=== PATIENT | male | born 1930 | race Caucasian/White ===

== ENCOUNTER 2017-03-28 21:32 | Day surgery (SDC) | payer MEDICARE ==
[2017-03-28] MEDS ORDERED: Sterile Water 10 ML ONE (22:36)
[2017-03-28 22:45] LABS: #Eosinphils 0.3 thou/uL (0.0-0.7); #Lymphocytes 0.8 thou/uL (1.20-3.40); #Monocytes 0.8 thou/uL (0.11-0.59); #Neutrophils 7.3 thou/uL (1.40-6.50); %Eosinophils 2.8 % (0.0-10.0); %Lymphocytes 8.6 % (21.0-51.0); %Monocytes 8.3 % (0.0-10.0); Hematocrit 43.5 % (42.0-52.0); Red Blood Cell (RBC) Count 4.47 mill/uL (4.70-6.10); White Blood Cell (WBC) Count 9.1 thou/uL (4.8-10.8)
--- NOTE | 2017-03-28 22:47 | RAD ---
CHEST 1 VIEW: Date: 03/28/17 HISTORY: Chest pain. COMPARISON: Chest 1 view dated 07/29/16. FINDINGS: Chronic changes in the lung bases. No pneumothorax. No focal air space consolidation. Moderate calcifications of the aorta. No acute osseous abnormalities. IMPRESSION: No acute intrathoracic abnormality. POS: [facility]
[2017-03-28 22:56] LABS: ALT (SGPT) 34 U/L (8-55); AST (SGOT) 42 U/L (5-34); Alkaline Phosphatase 104 U/L (40-150); Anion Gap 16 mmol/L (10-20); BUN (Urea Nitrogen) 22 mg/dL (8.4-25.7); Bilirubin, Total 0.7 mg/dL (0.2-1.2); Calc. Creatinine Clearance 0 mL/min (70-130); Calcium 9.6 mg/dL (7.8-10.44); Carbon Dioxide 20 mmol/L (23-31); Chloride 110 mmol/L (98-107); Estimated GFR-MDRD 50; Globulin 4.2 g/dL (2.4-3.5); Lipase 35 U/L (8-78); Protein, Total 8.1 g/dL (5.8-8.1)
[2017-03-28 23:03] LABS: Troponin I 0.013 ng/mL (< 0.028)
[2017-03-29] MEDS ORDERED: Fentanyl 100 MCG/2 ML VIAL ONE (00:05)
[2017-03-29] MEDS ORDERED: Midazolam HCl 2 mg/2 ml Vial ONE (00:05)
[2017-03-29] MEDS ORDERED: Lidocaine 2% PF 10 ML AMP (For Epidural Use) ONE (00:39)
[2017-03-29] MEDS ORDERED: Propofol 200 MG/20 ML VIAL ONE (00:39)
--- NOTE | 2017-03-29 01:44 | OP ---
DATE OF PROCEDURE: 03/29/2017 PROCEDURE: Esophagogastroduodenoscopy with removal of esophageal foreign body and esophageal balloon dilation and biopsy. PREOPERATIVE DIAGNOSIS: Esophageal foreign body and food bolus impaction. OPERATIVE NOTE: Informed consent was obtained from the patient. He was sedated with general anesthe kaylyn. The bite block was placed and the endoscope was advanced easily to the second portion of the du odenum and retroflexion was performed in the stomach. The esophagus had a food bolus impacted in the distal esophagus. This was advanced into the stomach with gentle pressure with the endoscope. Ther e was a stricture in the distal esophagus, which was circumferential with some circumferential erosio n. The stricture was dilated to 16.5 mm, which was stage II of an 18-mm balloon. An appropriate tea r at the mucosa at the dilation site was seen. There was a 1-2 cm hiatal hernia present. The stomac h was normal including retroflexed views otherwise. Biopsies were taken from the antrum of the stoma ch to rule out H. pylori. There were multiple shallow ulcers in the first portion of the duodenum. The second portion of the duodenum was normal. IMPRESSION: 1. Esophageal food bolus advanced into the stomach with the endoscope. 2. Circumferential erosive esophagitis grade C at the level of the stricture. 3. 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 An appropriate tear was seen at the dila tion site. 4. A 1-2 cm hiatal hernia. 5. Multiple shallow duodenal ulcers. Gastric biopsies were obtained to rule out Helicobacter pylori . RECOMMENDATIONS: 1. Await histopathology. 2. Pantoprazole 40 mg daily. 3. Follow up with Dr. Thomas in 2-4 weeks. Consider EGD to dilate further depending on symptom resp onse. 4. He does have a difficult airway and a followup endoscopy is planned and consider scheduling this at the hospital.
--- NOTE | 2017-03-29 06:01 | HP ---
DATE OF CONSULTATION: 03/29/2017 CHIEF COMPLAINT: Cannot swallow and upper epigastric to lower chest pain. HISTORY OF PRESENT ILLNESS: Mr. Ngo is an 86-year-old man who has had intermittent episodes of d ysphagia to solids for which he has to vomit to relieve the symptoms. This afternoon, he was eating fish, the food quit going down and developed aching pain in the lower chest region. He tried vomitin g several times, but just vomited up some clear mucousy material. He came to the emergency room for further care. He was given glucagon without help. He attempted to swallow water, but water just cam e back up. He has had no shortness of breath, no lower abdominal pain, no diarrhea, constipation, we ight loss or blood in the stool. PAST MEDICAL HISTORY: Hypertension, COPD, stroke, urethral stricture, hyperlipidemia. PAST SURGICAL HISTORY: Cholecystectomy and EGD in 2008 that showed an esophageal ring by Dr. Thomas. FAMILY HISTORY: Negative for GI malignancy. SOCIAL HISTORY: No alcohol, tobacco, or drugs. ALLERGIES: No known drug allergies. MEDICATIONS: Prior to admission, Advair, DuoNeb, amlodipine, simvastatin, aspirin, vitamin. REVIEW OF SYSTEMS: Negative x10 systems reviewed except as stated in the history of present illness. PHYSICAL EXAMINATION: GENERAL: He is in no acute distress, alert and oriented x3. HEENT: Eyes have no scleral icterus. Oropharynx is clear without lesions. NECK: No cervical or supraclavicular lymphadenopathy. LUNGS: Clear to auscultation bilaterally. HEART: Regular rate and rhythm. He has a 3/6 systolic murmur at right upper sternal border. ABDOMEN: Soft, nontender, nondistended. Bowel sounds are present. EXTREMITIES: No lower extremity edema. IMPRESSION: Esophageal food bolus impaction. He is unable to tolerate liquids. PLAN: 1. EGD this evening. 2. Start proton-pump inhibitor daily.
== END 2017-03-29 02:30 | disposition home or self-care (01) ==
LOC: ERS 21:32 → SDC/OP 03-29 00:30 → ERS 03-29 00:30 → SDC/OP 03-29 01:18
PROVIDERS: ATTEND Internal Medicine Gastroenterology
PROC: 0DC58ZZ Extirpation of Matter from Esophagus, Via Natural or Artificial Opening Endoscopic (ICD-10-PCS; principal; 2017-03-28)
PROC: 0DB78ZX Excision of Stomach, Pylorus, Via Natural or Artificial Opening Endoscopic, Diagnostic (ICD-10-PCS; 2017-03-28)
PROC: 0D758ZZ Dilation of Esophagus, Via Natural or Artificial Opening Endoscopic (ICD-10-PCS; 2017-03-28)
DX: T18.128A Food in esophagus causing other injury, initial encounter (principal); K29.60 Other gastritis without bleeding; K44.9 Diaphragmatic hernia without obstruction or gangrene; K22.2 Esophageal obstruction; K22.10 Ulcer of esophagus without bleeding; I10 Essential (primary) hypertension; J44.9 Chronic obstructive pulmonary disease, unspecified; E78.5 Hyperlipidemia, unspecified; Z79.82 Long term (current) use of aspirin; Z79.51 Long term (current) use of inhaled steroids; Z79.899 Other long term (current) drug therapy; Z90.49 Acquired absence of other specified parts of digestive tract; Z98.890 Other specified postprocedural states; Z86.73 Personal history of transient ischemic attack (TIA), and cerebral infarction without residual deficits
CPT/HCPCS: 43247; 43239; 43249; 71010; 80053; 82553; 83690; 84484; 85025; 88305; 88312; 93005; 96374; 99285; J1610; A4216; J2001; J2250; J2704; J3010

== ENCOUNTER 2017-12-08 12:37 | Outpatient (CLI) | payer MEDICARE ==
--- NOTE | 2017-12-08 13:42 | RAD ---
LUMBAR SPINE 4 VIEWS: Date: 12/08/17 HISTORY: Acute right-sided low back pain. COMPARISON: None. FINDINGS: There is diffuse bone demineralization. Five lumbar-type vertebral bodies. No spondylolisthesis or sp ondylolysis. Lumbar spine vertebral body height is maintained. No fracture. Atherosclerosis of aorta is noted. IMPRESSION: Diffuse bone demineralization without evidence of a fracture or significant loss of disc space height . POS: [facility]
--- NOTE | 2017-12-08 13:51 | RAD ---
ONE VIEW PELVIS: TWO VIEWS RIGHT HIP: HISTORY: Acute low back pain. COMPARISON: None. FINDINGS: PELVIS: There appears to be metallic suture projecting over the right hemipelvis. The sacroiliac lilia ints are patent and symmetric. The bony pelvis is intact. The visualized sacral ala are preserved. Contour of the left and right femoral head are maintained in the single AP projection of the pelvis. Mild loss of left and right hip joint space height. HIP: The contour of the femoral head is maintained. Mild loss of joint space height. No fracture. IMPRESSION: 1. Unremarkable one view pelvis. 2. Unremarkable two views right hip. No fracture. POS: [facility]
== END 2017-12-08 12:38 | disposition home or self-care (01) ==
LOC: RAD 12:37
PROVIDERS: ATTEND Family Medicine
DX: M25.551 Pain in right hip (principal); M54.5 Low back pain
CPT/HCPCS: 72110

== ENCOUNTER 2018-08-11 09:34 | Emergency (ER) | payer MEDICARE ==
[2018-08-11] MEDS ORDERED: predniSONE 20 MG TAB ONE (09:56)
[2018-08-11 10:12] LABS: #Eosinphils 0.7 thou/uL (0.0-0.7); #Lymphocytes 0.9 thou/uL (1.20-3.40); #Monocytes 0.7 thou/uL (0.11-0.59); #Neutrophils 3.4 thou/uL (1.40-6.50); %Basophils 0.2 % (0.0-1.0); %Eosinophils 11.5 % (0.0-10.0); %Lymphocytes 15.6 % (21.0-51.0); %Monocytes 12.6 % (0.0-10.0); %Neutrophils 60.1 % (42.0-75.0); Hemoglobin 12.9 g/dL (14.0-18.0); Mean Corpuscular HGB CONC 32.4 g/dL (32.0-36.0); Mean Corpuscular Hemoglobin 30.9 pg (27.0-31.0); Mean Corpuscular Volume 95.2 fL (78.0-98.0); Mean Platelet Volume 6.8 fL (7.4-10.4); Platelet Count 221 thou/uL (130-400); RBC Distribution Width 13.5 % (11.5-14.5); Red Blood Cell (RBC) Count 4.19 mill/uL (4.70-6.10); White Blood Cell (WBC) Count 5.7 thou/uL (4.8-10.8)
--- NOTE | 2018-08-11 10:14 | RAD ---
FChest AP view INDICATION: Shortness of breath COMPARISON: March 28, 2017 FINDINGS:There is stable cardiomegaly and chronic lung changes. No acute airspace opacity, pleural ef fusion or pneumothorax is evident. Osseous structures are similar-appearing. IMPRESSION: No acute cardiopulmonary abnormality.
[2018-08-11 10:39] LABS: ALT (SGPT) 23 U/L (8-55); AST (SGOT) 30 U/L (5-34); Albumin 3.5 g/dL (3.4-4.8); Alkaline Phosphatase 89 U/L (40-150); Anion Gap 11 mmol/L (10-20); BUN (Urea Nitrogen) 18 mg/dL (8.4-25.7); Bilirubin, Total 0.8 mg/dL (0.2-1.2); Calc. Creatinine Clearance 0 mL/min (70-130); Calcium 8.9 mg/dL (7.8-10.44); Carbon Dioxide 24 mmol/L (23-31); Chloride 109 mmol/L (98-107); Estimated GFR-MDRD 53; Glucose 93 mg/dL (83-110); Protein, Total 6.5 g/dL (5.8-8.1); Sodium 140 mmol/L (136-145)
== END 2018-08-11 12:44 | disposition home or self-care (01) ==
LOC: ERS 09:34
DX: J44.1 Chronic obstructive pulmonary disease with (acute) exacerbation (principal); Z86.73 Personal history of transient ischemic attack (TIA), and cerebral infarction without residual deficits; J44.9 Chronic obstructive pulmonary disease, unspecified; Z79.899 Other long term (current) drug therapy; Z79.82 Long term (current) use of aspirin
CPT/HCPCS: 36415; 71045; 80053; 83880; 84484; 85025; 93005

== ENCOUNTER 2018-10-15 12:16 | Emergency (ER) | payer MEDICARE ==
--- NOTE | 2018-10-15 13:03 | CT ---
EXAM: Brain CT scan Without contrast: HISTORY: Dizziness when walking COMPARISON: 07/29/2016 FINDINGS: Moderate sinus mucosal disease. Old right frontal infarct changes. Stable. Atrophy and chronic white matter ischemic change. No focal mass or midline shift. No intra or extra-axial hemorrhage. The visualized sinuses and mastoids are clear of acute process. IMPRESSION: No mass or bleed or other significant acute intracranial process. Stable from prior study.
[2018-10-15] MEDS ORDERED: Meclizine HCl 25 MG TAB ONE (13:09)
[2018-10-15 13:25] LABS: Hemoglobin 13.9 g/dL (14.0-18.0); Mean Corpuscular Hemoglobin 32.5 pg (27.0-31.0); Mean Corpuscular Volume 95.7 fL (78.0-98.0); Mean Platelet Volume 7.2 fL (7.4-10.4); Platelet Count 207 thou/uL (130-400); RBC Distribution Width 13.4 % (11.5-14.5); Red Blood Cell (RBC) Count 4.27 mill/uL (4.70-6.10); White Blood Cell (WBC) Count 21.8 thou/uL (4.8-10.8)
[2018-10-15 13:48] LABS: Band 5 % (5-11); Lymphocytes 2 % (21-51); MDiff Complete? YES; Monocytes 6 % (0-10); Neutrophil 87 % (42-75); Platelet Morphology Comment Appears Adequate; Polychromasia SLIGHT = 2-3 cells (100X) (0-2/hpf)
[2018-10-15 13:49] LABS: ALT (SGPT) 42 U/L (8-55); AST (SGOT) 55 U/L (5-34); Albumin 3.8 g/dL (3.4-4.8); Alkaline Phosphatase 95 U/L (40-150); Anion Gap 17 mmol/L (10-20); BUN (Urea Nitrogen) 22 mg/dL (8.4-25.7); Bilirubin, Total 1.3 mg/dL (0.2-1.2); Calc. Creatinine Clearance 0 mL/min (70-130); Carbon Dioxide 18 mmol/L (23-31); Chloride 108 mmol/L (98-107); Estimated GFR-MDRD 54; Globulin 3.6 g/dL (2.4-3.5); Glucose 112 mg/dL (83-110); Potassium 4.1 mmol/L (3.5-5.1); Protein, Total 7.4 g/dL (5.8-8.1); Sodium 139 mmol/L (136-145)
[2018-10-15 14:53] LABS: Bilirubin Negative (Negative); Blood, Urine Small (Negative); Clarity CLOUDY (Clear); Glucose, Urine (Dipstick) Negative (Negative); Leukocyte Large (Negative); Nitrite Positive (Negative); Protein, Urine (Dipstick) 30 mg/dL (Neg-Trace); Specific Gravity, Urine 1.022 (1.002-1.036); Urobilinogen 0.2 mg/dL (0.2-1.0)
[2018-10-15 14:56] LABS: Bacteria/HPF 4+ HPF (None Seen); Hyaline Casts/LPF 0-3 HYALINE CAST LPF (0-3 Hyaline); Pathc Cast-AUWi Flag 0.81 (0-2.49); Squamous Epithelial 0-3 HPF (0-3)
[2018-10-15] MEDS ORDERED: cefTRIAXone\\ROCEPHIN 2 GM VIAL ONE (15:13)
[2018-10-15] MEDS ORDERED: cefTRIAXone\\ROCEPHIN 1 GM VIAL ONE (15:23)
[2018-10-15] MEDS ORDERED: Lidocaine 1% (PF) 30 ML VIAL ONE (15:23)
== END 2018-10-15 16:36 ==
LOC: ERS 12:16
DX: N39.0 Urinary tract infection, site not specified (principal); J44.9 Chronic obstructive pulmonary disease, unspecified; Z79.899 Other long term (current) drug therapy; Z86.73 Personal history of transient ischemic attack (TIA), and cerebral infarction without residual deficits
CPT/HCPCS: 36415; 70450; 80053; 81003; 81015; 84484; 85025; 87077; 87086; 87186; 93005; J0696; J2001; J8499

== ENCOUNTER 2018-10-15 20:32 | Inpatient (IN) | payer MEDICARE ==
[2018-10-15 21:19] LABS: #Basophils 0.1 thou/uL (0.0-0.2); #Eosinphils 0.1 thou/uL (0.0-0.7); #Lymphocytes 0.7 thou/uL (1.20-3.40); #Monocytes 1.4 thou/uL (0.11-0.59); #Neutrophils 14.9 thou/uL (1.40-6.50); %Basophils 0.4 % (0.0-1.0); %Eosinophils 0.4 % (0.0-10.0); %Lymphocytes 4.1 % (21.0-51.0); %Neutrophils 87.1 % (42.0-75.0); Hemoglobin 13.4 g/dL (14.0-18.0); Mean Corpuscular HGB CONC 33.1 g/dL (32.0-36.0); Mean Corpuscular Hemoglobin 31.8 pg (27.0-31.0); Mean Corpuscular Volume 95.8 fL (78.0-98.0); Mean Platelet Volume 7.3 fL (7.4-10.4); Platelet Count 208 thou/uL (130-400); RBC Distribution Width 13.4 % (11.5-14.5); Red Blood Cell (RBC) Count 4.21 mill/uL (4.70-6.10); White Blood Cell (WBC) Count 17.1 thou/uL (4.8-10.8)
--- NOTE | 2018-10-15 21:37 | CT ---
CT BRAIN NONCONTRAST: DATE: 10/15/2018 HISTORY: 88-year-old male status post head trauma from fall COMPARISON: 10/15/2018 12:54 PM, approximately 8 hours ago FINDINGS: There is no evidence of acute intra-axial or extra-axial hemorrhage. There is no midline shift or any other mass effect. There is no extra-axial fluid collection. There is no evidence of obstructive hydrocephalus. Calvarium is intact. There is diffuse brain parenchymal volume loss. There are low att enuation areas in the white matter. These are nonspecific, but in a patient of this age, they are probably chronic ischemic white matter changes due to microvascular atherosclerosis. Again noted are the moderate sized patchy regions of encephalomalacia and gliosis in the right anterior upper frontal lobe cortex, underlying subcortical white matter, and adjacent valle radiata and centrum paige iovale. No interval change overall. IMPRESSION: 1) No acute intracranial findings. 2) involutional changes and chronic ischemic white matter changes. 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
[2018-10-15 21:41] LABS: ALT (SGPT) 52 U/L (8-55); AST (SGOT) 68 U/L (5-34); Albumin 3.4 g/dL (3.4-4.8); Alkaline Phosphatase 91 U/L (40-150); Anion Gap 17 mmol/L (10-20); BUN (Urea Nitrogen) 21 mg/dL (8.4-25.7); Calc. Creatinine Clearance 0 mL/min (70-130); Calcium 9.1 mg/dL (7.8-10.44); Carbon Dioxide 17 mmol/L (23-31); Chloride 109 mmol/L (98-107); Estimated GFR-MDRD 57; Globulin 3.6 g/dL (2.4-3.5); Glucose 101 mg/dL (83-110); Potassium 3.8 mmol/L (3.5-5.1); Sodium 139 mmol/L (136-145)
--- NOTE | 2018-10-15 22:08 | RAD ---
RADIOGRAPH CHEST 1 VIEW: DATE: 10/15/2018 HISTORY: 88-year-old male status post acute chest trauma from fall FINDINGS: There are no airspace densities, pulmonary edema, pneumothorax, or cardiomegaly. The lateral costophr enic angles are sharp. IMPRESSION: No acute cardiopulmonary findings.
[2018-10-16] MEDS ORDERED: Ondansetron ODT 4 MG TAB PO PRN (00:05)
[2018-10-16] MEDS ORDERED: traMADol HCl 50 MG TAB PO PRN (00:05)
[2018-10-16] MEDS ORDERED: HYDROcodone/Acetaminophen 10/325 mg Tablet PO PRN ×2 (00:05→00:13)
--- NOTE | 2018-10-16 00:47 | HP ---
TIME: 11:50 p.m. HISTORY OF PRESENT ILLNESS: This is an 88-year-old white male with history of COPD, hypertension, and hyperlipidemia, who presents with frequent falls and weakness. He is followed by Dr. Rocky Milligan in the office. He has had some previous hospitalizations for COPD. He was seen earlier in the ER due to weakness. He was diagnosed with the UTI and was discharged. However, he continued to fall throughout the day and was complaining of marked weakness and unsteadiness. He was brought back to the ER and is being admitted for possible urosepsis. His UA was grossly abnormal with 4+ bacteria. Presently, he is stable. He does not complain of any fever, nausea, or vomiting. He just simply complains of feeling very weak. PAST MEDICAL HISTORY: Allergic rhinitis, history of stroke, and COPD. PAST SURGICAL HISTORY: Include hernia repair in 1955, tonsillectomy, and laparoscopic cholecystectomy in 2016. FAMILY HISTORY: Unknown. SOCIAL HISTORY: He lives in assisted living. He is single. He has children. He does not smoke and does not drink at this time. I believe he was a previous smoker. MEDICATIONS: Include multivitamin, aspirin 81 daily, amlodipine 5 daily, simvastatin 20 daily, Advair 250/50 b.i.d., DuoNeb q.6h. p.r.n. ALLERGIES: NONE. REVIEW OF SYSTEMS: As above. PHYSICAL EXAMINATION: VITAL SIGNS: Blood pressure /89, pulse 80, respirations 14. GENERAL: The patient in no acute distress at this time. HEENT: Clear. NECK: Supple. HEART: Regular rate and rhythm. LUNGS: Clear. ABDOMEN: Soft, nontender. No CVA tenderness. EXTREMITIES: With no edema. LABORATORY DATA: Urine with specific gravity of 1.022, large leukocyte esterase, 4+ bacteria and TNTC wbc's. White count 17.1, H and H 13 and 40, platelet 208. Sodium 139, potassium 3.8, creatinine 1.20, BUN 21. Liver functions normal. ASSESSMENT: 1. Urosepsis, cultures pending. 2. History of chronic obstructive pulmonary disease. 3. History of cerebrovascular accident. 4. Weakness. PLAN: 1. Admit. 2. Slowly hydrate. 3. IV Levaquin. 4. Blood and urine culture. We will continue to follow. Job ID: [id number]
[2018-10-16] MEDS: Sodium Chloride 0.9% 1,000 ML IV SCH ×2 (01:25→21:35)
[2018-10-16 01:41] VITALS: BMI 20.1
[2018-10-16 05:34] LABS: #Eosinphils 0.1 thou/uL (0.0-0.7); #Lymphocytes 0.8 thou/uL (1.20-3.40); #Monocytes 1.4 thou/uL (0.11-0.59); #Neutrophils 12.5 thou/uL (1.40-6.50); %Basophils 0.1 % (0.0-1.0); %Eosinophils 0.5 % (0.0-10.0); %Lymphocytes 5.4 % (21.0-51.0); %Monocytes 9.2 % (0.0-10.0); %Neutrophils 84.9 % (42.0-75.0); Hemoglobin 12.2 g/dL (14.0-18.0); Mean Corpuscular HGB CONC 34.7 g/dL (32.0-36.0); Mean Corpuscular Hemoglobin 33.1 pg (27.0-31.0); Mean Corpuscular Volume 95.2 fL (78.0-98.0); Mean Platelet Volume 7.2 fL (7.4-10.4); Platelet Count 184 thou/uL (130-400); RBC Distribution Width 13.2 % (11.5-14.5); Red Blood Cell (RBC) Count 3.68 mill/uL (4.70-6.10); White Blood Cell (WBC) Count 14.8 thou/uL (4.8-10.8)
[2018-10-16 05:54] LABS: Anion Gap 13 mmol/L (10-20); BUN (Urea Nitrogen) 17 mg/dL (8.4-25.7); Calc. Creatinine Clearance 43 mL/min (70-130); Calcium 8.6 mg/dL (7.8-10.44); Carbon Dioxide 21 mmol/L (23-31); Chloride 109 mmol/L (98-107); Estimated GFR-MDRD 64; Glucose 109 mg/dL (83-110); Potassium 3.5 mmol/L (3.5-5.1); Sodium 139 mmol/L (136-145)
[2018-10-16] MEDS: Multivitamin W/ Minerals 1 TAB PO SCH (08:04)
[2018-10-16] MEDS: Aspirin Chewable 81 MG TAB PO SCH (08:04)
[2018-10-16] MEDS: Amlodipine 5 MG TAB PO SCH (08:04)
[2018-10-16] MEDS: Famotidine/PF 20 mg/2ml Vial SLOW IVP SCH (08:04)
[2018-10-16] MEDS: Enoxaparin Sodium 40 MG/0.4 ML SYRINGE SC SCH (08:05)
[2018-10-16] MEDS ORDERED: Prevnar 13-Val Conj/PF 0.5 ML SYRINGE IM ONE (09:00)
[2018-10-16] MEDS: Mometasone/Formoterol 120 PUFF INHALER INH SCH ×2 (10:24→18:52)
--- NOTE | 2018-10-16 12:53 | PRG ---
DATE OF SERVICE: 10/16/2018 SUBJECTIVE: The patient is feeling somewhat better today. He does complain of a tender forehead from his fall. He did eat 50% of his breakfast. OBJECTIVE: VITAL SIGNS: Temperature 98.4, pulse 82, respirations 16, and blood pressure 131/62. HEART: Regular rate and rhythm. LUNGS: Clear. ABDOMEN: Soft, nontender. LABORATORY DATA: White count decreased from 17.1 to 14.8, H and H of 12 and 35. Creatinine 1.09, BUN 17, and blood sugar 109. ASSESSMENT: 1. Urosepsis, cultures are pending. 2. History of chronic obstructive pulmonary disease. 3. History of cerebrovascular accident. 4. Weakness. PLAN: 1. Continue to hydrate. 2. IV Levaquin. 3. Physical therapy consult. 4. We will continue to follow. Job ID: [id number]
[2018-10-16] MEDS: Atorvastatin Calcium 10 MG TAB PO SCH (21:33)
[2018-10-17 05:26] LABS: #Eosinphils 0.6 thou/uL (0.0-0.7); #Lymphocytes 0.9 thou/uL (1.20-3.40); #Monocytes 0.9 thou/uL (0.11-0.59); #Neutrophils 6.7 thou/uL (1.40-6.50); %Eosinophils 6.8 % (0.0-10.0); %Lymphocytes 9.7 % (21.0-51.0); %Monocytes 10.3 % (0.0-10.0); %Neutrophils 73.2 % (42.0-75.0); Hemoglobin 12.2 g/dL (14.0-18.0); Mean Corpuscular HGB CONC 34.2 g/dL (32.0-36.0); Mean Corpuscular Hemoglobin 32.9 pg (27.0-31.0); Mean Corpuscular Volume 96.2 fL (78.0-98.0); Mean Platelet Volume 7.7 fL (7.4-10.4); Platelet Count 191 thou/uL (130-400); RBC Distribution Width 13.1 % (11.5-14.5); White Blood Cell (WBC) Count 9.2 thou/uL (4.8-10.8)
[2018-10-17 05:48] LABS: Anion Gap 12 mmol/L (10-20); BUN (Urea Nitrogen) 18 mg/dL (8.4-25.7); Calc. Creatinine Clearance 43 mL/min (70-130); Calcium 8.3 mg/dL (7.8-10.44); Carbon Dioxide 19 mmol/L (23-31); Chloride 112 mmol/L (98-107); Estimated GFR-MDRD 64; Glucose 88 mg/dL (83-110); Potassium 3.6 mmol/L (3.5-5.1); Sodium 139 mmol/L (136-145)
[2018-10-17] MEDS: Mometasone/Formoterol 120 PUFF INHALER INH SCH ×2 (08:16→19:11)
[2018-10-17] MEDS: Multivitamin W/ Minerals 1 TAB PO SCH (09:20)
[2018-10-17] MEDS: Amlodipine 5 MG TAB PO SCH (09:21)
[2018-10-17] MEDS: Enoxaparin Sodium 40 MG/0.4 ML SYRINGE SC SCH (09:21)
[2018-10-17] MEDS: Aspirin Chewable 81 MG TAB PO SCH (09:21)
[2018-10-17] MEDS: Famotidine/PF 20 mg/2ml Vial SLOW IVP SCH (09:29)
--- NOTE | 2018-10-17 11:10 | PRG ---
DATE OF SERVICE: 10/17/2018 SUBJECTIVE: Mr. Ngo is resting well. He is feeling better. He has been afebrile. OBJECTIVE: VITAL SIGNS: Temperature is 98.0, BP 145/86, O2 sats 95% on room air. GENERAL: Alert and active, in no distress. LUNGS: Clear. HEART: Reveals a regular rate and rhythm. No murmurs, gallops, or rubs. LABORATORY DATA: Hemoglobin 12.2, hematocrit 34.6, white count 9.2. Electrolytes; sodium 139, potassium 3.6, chloride 112, CO2 of 19, BUN 18, creatinine 1.09. Blood cultures negative thus far. IMPRESSION: Apparent pyelonephritis, urinary tract infection. PLAN: Continue current IV antibiotics. Possible discharge tomorrow. Job ID: [id number]
[2018-10-17] MEDS: Sodium Chloride 0.9% 1,000 ML IV SCH (19:25)
[2018-10-17] MEDS: Atorvastatin Calcium 10 MG TAB PO SCH (21:17)
[2018-10-18] MEDS: Mometasone/Formoterol 120 PUFF INHALER INH SCH (06:41)
[2018-10-18 07:35] VITALS: BP 154/77; TEMP 97.8
--- NOTE | 2018-10-18 07:37 | PRG ---
DATE OF SERVICE: 10/18/2018 SUBJECTIVE: Mr. Ngo is doing well. He reports no fever, no nausea, vomiting, or diarrhea. OBJECTIVE: VITAL SIGNS: Temperature 98.0, BP 137/63. LABORATORY DATA: He has urine culture that is growing Enterobacter cloacae with multiple sensitivities. IMPRESSION: Urinary tract infection, now stabilized. He can be discharged home. He will follow up with me in 1 week. Job ID: [id number]
[2018-10-18] MEDS: Enoxaparin Sodium 40 MG/0.4 ML SYRINGE SC SCH (08:04)
[2018-10-18] MEDS: Famotidine/PF 20 mg/2ml Vial SLOW IVP SCH (08:08)
[2018-10-18] MEDS: Amlodipine 5 MG TAB PO SCH (08:08)
[2018-10-18] MEDS: Aspirin Chewable 81 MG TAB PO SCH (08:08)
[2018-10-18] MEDS: Multivitamin W/ Minerals 1 TAB PO SCH (08:08)
--- NOTE | 2018-10-19 09:31 | DIS ---
DATE OF ADMISSION: 10/15/2018 DATE OF DISCHARGE: 10/18/2018 DISCHARGE DIAGNOSES: Pyelonephritis/urinary tract infection. HOSPITAL SUMMARY: The patient is an 88-year-old male who has a previous CVA, admitted to the emergency room with fever, had some frequent falls, who was seen in the ER that day. He came back with further fever. He was treated with IV antibiotics consisting of Levaquin. Urine cultures obtained which did grow out Enterobacter cloacae sensitive to Levaquin. He has remained afebrile in the hospital. He was able to tolerate all oral intake. He was discharged home on 10/18/2018, in good condition. DISCHARGE MEDICATIONS: 1. Amlodipine 5 mg daily. 2. Aspirin 81 mg daily. 3. Fluticasone nasal spray b.i.d. 4. Mometasone formoterol 200/5 b.i.d. 5. Simvastatin 10 mg daily. 6. Tylenol p.r.n. pain. In addition, he was placed on Levaquin 500 mg daily. FOLLOWUP: He will follow up with me in 1 week. Job ID: [id number]
== END 2018-10-18 11:06 | disposition home or self-care (01) | DRG 690 ==
LOC: ERS 20:32 → T4-A 23:10
PROVIDERS: ADMIT Family Medicine; ATTEND Family Medicine
DX: N39.0 Urinary tract infection, site not specified (principal); J44.9 Chronic obstructive pulmonary disease, unspecified; I10 Essential (primary) hypertension; B96.89 Other specified bacterial agents as the cause of diseases classified elsewhere; E78.5 Hyperlipidemia, unspecified; Z90.49 Acquired absence of other specified parts of digestive tract; Z86.73 Personal history of transient ischemic attack (TIA), and cerebral infarction without residual deficits; Z79.51 Long term (current) use of inhaled steroids; Z79.82 Long term (current) use of aspirin; Z79.899 Other long term (current) drug therapy
CPT/HCPCS: 36415; 70450; 71045; 80048; 80053; 81003; 81015; 83605; 84484; 85025; 87040; 87077; 87086; 87186; 90471; 90670; 93005; 96360; 96372; G0009; J0696; J1650; J1956; J2001; J8499; S0028

== ENCOUNTER → 2018-11-30 | Day surgery (SDC) | payer MEDICARE ==
[~2018-11-30] MED LIST: Lidocaine Viscous Sol 2% 15 ml UD Cup ONE; Mag-Al 1200 mg/1200 mg/30 ML UDCUP ONE; Ondansetron HCl/PF 4 MG/2 ML Vial IVP PRN; Ondansetron ODT 4 MG TAB ONE; Sterile Water 10 ML ONE
--- NOTE | 2018-11-30 17:52 | RAD ---
TWO VIEW CHEST WITH PA AND LATERAL: 11/30/18 HISTORY: Feels like something stuck in throat. Lungs are clear. Heart and mediastinum unremarkable. Vascularity is normal. Apical pleural thickenin g is stable when compared to 11/15/14 exam. Mild degenerative changes in the spine. Mild aortic calcifications. IMPRESSION: No acute finding or interval change. POS: [facility]
[2018-11-30 19:13] LABS: #Eosinphils 0.2 thou/uL (0.0-0.7); #Lymphocytes 0.7 thou/uL (1.20-3.40); #Monocytes 0.9 thou/uL (0.11-0.59); #Neutrophils 15.1 thou/uL (1.40-6.50); %Eosinophils 1.4 % (0.0-10.0); %Lymphocytes 3.9 % (21.0-51.0); %Monocytes 5.1 % (0.0-10.0); %Neutrophils 89.6 % (42.0-75.0); Hemoglobin 13.6 g/dL (14.0-18.0); Mean Corpuscular HGB CONC 33.8 g/dL (32.0-36.0); Mean Corpuscular Hemoglobin 32.5 pg (27.0-31.0); Mean Platelet Volume 6.8 fL (7.4-10.4); Platelet Count 226 thou/uL (130-400); RBC Distribution Width 12.8 % (11.5-14.5); Red Blood Cell (RBC) Count 4.19 mill/uL (4.70-6.10); White Blood Cell (WBC) Count 16.9 thou/uL (4.8-10.8)
[2018-11-30 19:22] LABS: PTT 32.2 SEC (22.9-36.1); Prothrombin Time 13.4 SEC (12.0-14.7)
[2018-11-30 19:42] LABS: ALT (SGPT) 34 U/L (8-55); AST (SGOT) 37 U/L (5-34); Albumin 3.9 g/dL (3.4-4.8); Alkaline Phosphatase 91 U/L (40-150); BUN (Urea Nitrogen) 25 mg/dL (8.4-25.7); Bilirubin, Total 0.4 mg/dL (0.2-1.2); Calc. Creatinine Clearance 0 mL/min (70-130); Calcium 9.8 mg/dL (7.8-10.44); Carbon Dioxide 24 mmol/L (23-31); Estimated GFR-MDRD 53; Globulin 3.8 g/dL (2.4-3.5); Glucose 167 mg/dL (83-110); Protein, Total 7.7 g/dL (5.8-8.1)
[2018-11-30 19:50] LABS: Anion Gap 12 mmol/L (10-20); Chloride 109 mmol/L (98-107); Potassium 3.9 mmol/L (3.5-5.1); Sodium 140 mmol/L (136-145)
[2018-11-30 22:12] LABS: Bacteria/HPF None Seen HPF (None Seen); Bilirubin Negative (Negative); Blood, Urine Negative (Negative); Clarity Clear (Clear); Glucose, Urine (Dipstick) Normal (Negative); Leukocyte Negative Leu/uL (Negative); Nitrite Negative (Negative); Protein, Urine (Dipstick) 20 mg/dL (Neg-Trace); RBC/HPF 0-3 HPF (0-3); Squamous Epithelial None Seen HPF (0-3); Urobilinogen Normal mg/dL (Less than 2); WBC/HPF 0-3 HPF (0-3)
--- NOTE | 2018-12-01 02:26 | CON ---
DATE OF CONSULTATION: 11/30/2018 REASON FOR CONSULTATION: Esophageal food bolus impaction. CONSULTING PHYSICIAN: Dr. Courtney. HISTORY OF PRESENT ILLNESS: The patient is an 88-year-old male with past medical history of COPD, hypertension, hyperlipidemia, recurrent urinary tract infections, and TIA/cerebrovascular accident with residual left-sided deficits and esophageal stricture with food impaction in 2017, presenting with complaints of dysphagia. He states for the last 1 to 2 months he has been having intermittent episodes of the sensation that food is getting stuck at the level of the xiphoid process that would occur primarily with ingested cold foods. This would occur with both solid and liquid foods and would occur for 3-5 days at a time and spontaneously resolve. However, earlier today while the patient was eating both fish and ice cream, during the ingestion of the eye stream, he noted that the sensation of pressure was increasing at the level of the xiphoid process. He tried to drink water and was unsuccessful in terms of relieving this pressure, but instead vomited up a small amount of the water. With repeated attempts to "swallow hard" that were unsuccessful, it prompted him to seek healthcare assistance in the [facility] ER. While in the ER, glucagon and ingestion of water was attempted and were both unsuccessful. Otherwise, he currently denies any fevers, chills, hematemesis, melena, hematochezia, or weight loss. Of note, the patient had an upper endoscopy performed on 04/06/2017, for a food bolus impaction with the findings of a higher grade distal esophageal stricture just proximal to the GE junction that was dilated to 16.5 mm. It was recommend that he follow up in the GI Clinic, but did not follow up. He was also placed on PPI therapy at that time, but this was discontinued at an unknown time ago due to the patient feeling better. REVIEW OF SYSTEMS: A 10-category review of systems was obtained with all responses negative except for the pertinent positives as listed in HPI. PAST MEDICAL HISTORY: As per HPI. PAST SURGICAL HISTORY: Cholecystectomy, tonsillectomy, and ventral hernia repair. FAMILY HISTORY: Breast cancer diagnosed in his mother, no stated GI malignancies. SOCIAL HISTORY: Denies any tobacco, alcohol, or illicit drug use. OUTPATIENT MEDICATIONS: Reviewed. ALLERGIES: NO KNOWN DRUG ALLERGIES. PHYSICAL EXAMINATION: VITAL SIGNS: Temperature 97.9, pulse 66, blood pressure 192/96, respiratory rate 21, saturating 96% on room air. GENERAL: The patient was lying in bed, in no acute distress. Alert and oriented x4, although somewhat hard of hearing. Intermittently spitting up into the emesis bag at bedside. HEENT: Neck is supple. Normocephalic, atraumatic. No scleral icterus or JVD noted. CARDIOVASCULAR: Regular rate and rhythm with no discernible murmurs, gallops, or rubs. RESPIRATORY: Clear to auscultation bilaterally with no discernible wheezes or rales. ABDOMEN: Normoactive bowel sounds. Soft, nontender, nondistended. EXTREMITIES: No cyanosis, clubbing, or edema. LABORATORY DATA: CBC with a white blood cell count of 16.9, hemoglobin 13.6, hematocrit 40.2, glucose 226. INR 1.0. Comprehensive medical panel still pending at the time of this evaluation. IMAGING STUDIES: Chest x-ray obtained on 11/30/2018, showed no acute cardio or pulmonary process. ASSESSMENT AND PLAN: The patient is an 88-year-old male with past medical history of chronic obstructive pulmonary disease, hypertension, transient ischemic attack/cerebrovascular accident, hyperlipidemia, recurrent urinary tract infections, and esophageal stricture, presenting with food bolus impaction, most likely due to repeat esophageal stricture. Esophageal food bolus impaction: The patient is presenting with complaints of dysphagia characterized as a sensation that food is getting stuck at the xiphoid process that occurred at noon earlier today while eating fish and ice cream. Multiple attempts to relieve the obstruction with swallowing hard and ingestion of water were unsuccessful. Attempts in the ER with glucagon and repeat ingestion of water were also unsuccessful. The patient does have a history of an esophageal stricture/Schatzki ring on prior endoscopy with that being the most likely etiology for the food impaction at this time. RECOMMENDATIONS: 1. Would continue n.p.o. status in anticipation for upper endoscopy urgently tonight. 2. Would proceed with EGD for intraluminal evaluation and removal of the foreign body. 3. Would place the patient on PPI 40 mg daily indefinitely given the history of esophageal strictures and more likely reason for acid reflux as the causative mechanism. 4. May need continued workup for elevated white blood cell count, especially given recent hospitalization for urosepsis. Job ID: [id number]
--- NOTE | 2018-12-01 02:43 | OP ---
DATE OF PROCEDURE: 11/30/2018 PROCEDURE PERFORMED: Esophagogastroduodenoscopy with foreign body removal, balloon dilation of esophageal stricture. INDICATIONS FOR PROCEDURE: Dysphagia, esophageal food bolus impaction. DESCRIPTION OF PROCEDURE: After the risks and benefits of the procedure were explained to the patient including risks of bleeding, infection, perforation, reactions to anesthesia, aspiration and/or pain, informed consent was obtained. DESCRIPTION OF PROCEDURE: The patient was then taken to the endoscopy suite, where general anesthesia was administered with endotracheal tube intubation with Anesthesia support. Once the patient was intubated and sedated, he was placed in the left lateral decubitus position in preparation for the upper endoscopy. Once in adequate position, the standard gastroscope was introduced into the mouth with intubation of the esophagus, stomach, and the proximal small intestines with the findings listed below. The patient tolerated the procedure well with no immediate perioperative complications. Upon conclusion of the procedure, all equipment was removed from the patient and he was transferred to PACU in satisfactory condition. FINDINGS: Esophagus: Normal-appearing mucosa was seen in the proximal and mid esophagus, however, a large white-appearing food bolus was seen in the distal esophagus just proximal to the gastroesophageal junction. Using a combination of light pressure and use of the irrigation on the scope, the food bolus was able to be advanced into the stomach where it was adequately suctioned out. Upon further evaluation of the distal esophagus, a benign intrinsic esophageal stricture was seen just proximal to the gastroesophageal junction. That was easily traversed with the standard gastroscope. A small hiatal hernia was also seen during examination of the distal esophagus. There was minimal amount of increased mucosal erythema in the distal esophagus, although there was the presence of 2-3 submucosal hematomas. Given the presence of this esophageal stricture, a CRE TTS esophageal balloon was advanced through the endoscope and the stricture was dilated initially at 12 mm, but successfully advanced to 15 mm in diameter. After completion of this maneuver, the balloon was deflated and evaluation of stricture was noted with a small esophageal tear noted along the 4 o'clock position of the esophageal stricture with a minimal amount of heme. Otherwise, there was no evidence of ulceration or mass lesions in the distal esophagus. Stomach: Normal-appearing mucosa was seen in the gastric cardia, fundus, and body. However, multiple small petechiae appearing blood clots were seen in the gastric antrum and along the incisura. Upon irrigation of these small blood clots, there was no underlying pathology. On gastric retroflexion, there was a small hiatal hernia noted along with some of the remainder of the esophageal food bolus. Otherwise, there was no evidence of erosions, ulcerations, mass lesions, or active/recent bleeding. Duodenum: Normal-appearing mucosa was seen in both the duodenal bulb and second portion of the duodenum. There was no evidence of erosions, ulcerations, mass lesions, or active/recent bleeding. IMPRESSION: 1. Esophageal food bolus impaction seen in the distal esophagus and successfully advanced into the stomach using gentle pressure and irrigation. 2. Moderate grade 2 distal esophageal stricture consistent with a Schatzki ring, successfully dilated to 15 mm. 3. Small hiatal hernia. 4. Petechiae looking clots within the gastric antrum/incisura consistent with NSAID-gastritis. 5. Duodenal ulcers seen on prior examination were not seen during this examination. RECOMMENDATIONS: 1. We would place the patient on a liquid diet over the next 24 to 48 hours and advance to a soft mechanical diet until seen in the GI clinic. 2. We would start the patient on omeprazole 40 mg daily as part of acid reflux measures and prevention of further strictures. 3. We would have the patient follow up in the GI Clinic in 3 weeks for re-evaluation of dysphagia and possible repeat procedure with dilation at that time. 4. We would transfer the patient back to the ER for further evaluation of the elevated white blood cell count including a urinalysis given his recent history of urosepsis. We will continue to follow. Please call with any questions. Job ID: [id number]
== END ==
LOC: ERS 16:45 → SDC 19:31 → ERS 22:49
PROVIDERS: ATTEND Internal Medicine
PROC: 0DC38ZZ Extirpation of Matter from Lower Esophagus, Via Natural or Artificial Opening Endoscopic (ICD-10-PCS; principal; 2018-11-30)
PROC: 0D738ZZ Dilation of Lower Esophagus, Via Natural or Artificial Opening Endoscopic (ICD-10-PCS; 2018-11-30)
DX: T18.128A Food in esophagus causing other injury, initial encounter (principal); K22.2 Esophageal obstruction; K44.9 Diaphragmatic hernia without obstruction or gangrene; J44.9 Chronic obstructive pulmonary disease, unspecified; I10 Essential (primary) hypertension; E78.5 Hyperlipidemia, unspecified; Z86.73 Personal history of transient ischemic attack (TIA), and cerebral infarction without residual deficits
CPT/HCPCS: 43247; 43249; 71046; 80053; 81001; 85025; 85610; 85730; 93005; 96372; 99284; J1610; 36415; Q0162